=== PATIENT | male | born 1985 | race Caucasian/White ===

== ENCOUNTER 2020-08-29 22:03 | Emergency (ER) | payer BC ==
[2020-08-29 22:08] VITALS: BP 146/88; PULSE 80; RESP 18; TEMP 97.9
--- NOTE | 2020-08-29 22:19 | ED ---
Upper Extremity HPI - General Chief Complaint: Extremity Injury, Upper Stated Complaint: poss broken hand Time Seen by Provider: 08/29/20 22:14 Source: patient Mode of arrival: ambulatory Limitations: no limitations - History of Present Illness Initial Comments: 35 year-old male patient presents to the emergency department for evaluation of hand pain. Patient states about 30 minutes ago he dropped a fridge on his hand. States he believes his right "fourth metacarpal" is broken. States he did take 600mg ibuprofen prior to arrival. Denies numbness or tingling to the hand. Denies difficulty with range of motion. Denies any other injuries or concerns. Patient denies any headache, neck pain, back pain, chest pain, shortness of breath, dizziness, weakness, abdominal pain, nausea, vomiting, or difficulties with bowel movements or urination. - Related Data Allergies Allergy/AdvReac Type Severity Reaction Status Date / Time levofloxacin [From [employer]] Allergy Dyspnea Verified 08/29/20 22:07 prochlorperazine Allergy Rash/Hives Verified 08/29/20 22:07 [From Compazine] Review of Systems ROS Statement: Those systems with pertinent positive or pertinent negative responses have been documented in the HPI. ROS Other: All systems not noted in ROS Statement are negative. Past Medical History Past Medical History: No Reported History History of Any Multi-Drug Resistant Organisms: None Reported Past Surgical History: No Surgical Hx Reported Smoking Status: Never smoker Past Alcohol Use History: Occasional Past Drug Use History: None Reported General Exam Limitations: no limitations General appearance: alert, in no apparent distress, other (Physical well- developed, well-nourished adult male patient in no acute distress. Vital signs upon presentation are temperature 97.9F oral, pulse 80, respirations 18, blood pressure 146/88, pulse ox 98% on room air.) Respiratory exam: Present: normal lung sounds bilaterally. Absent: respiratory distress, wheezes, rales, rhonchi, stridor Cardiovascular Exam: Present: regular rate, normal rhythm, normal heart sounds. Absent: systolic murmur, diastolic murmur, rubs, gallop, clicks Extremities exam: Present: full ROM, tenderness (Right dorsal hand), normal capillary refill, other (There is soft tissue swelling and ecchymosis noted over the right dorsal hand specifically the fifth metacarpal at the MCP joint. Skin is otherwise pink, warm, dry. Cap refills less than 3 seconds. Radial pulses 2+.). Absent: normal inspection, pedal edema, joint swelling, calf tenderness Neurological exam: Present: alert, oriented X3, CN II-XII intact Psychiatric exam: Present: normal affect, normal mood Skin exam: Present: warm, dry, intact, normal color. Absent: rash Course Vital Signs 08/29/20 22:05 Temperature 97.9 F Pulse Rate 80 Respiratory 18 Rate Blood Pressure 146/88 O2 Sat by Pulse 98 Oximetry Medical Decision Making - Medical Decision Making 35-year-old male patient presents to the emergency department today for evaluation of right hand pain and swelling after coughing a for [place]. Physical examination did reveal soft tissue swelling and ecchymosis over the right dorsal hand specifically the fourth and fifth metacarpals. X-rays were obtained and did reveal boxer fracture minimally displaced to the right fifth metacarpal. Patient was placed in a ulnar gutter splint. He'll be discharged to follow-up with orthopedics in 1-2 days. He declines pain medication. He is educated regarding rest, ice, elevation. Return parameters were discussed in detail. He verbalizes understanding and agrees with this plan. Case discussed with my attending Dr. Granados. - Radiology Data Radiology results: report reviewed, image reviewed 3 views of the right hand are obtained. Report reviewed in its entirety. Impression by Dr. Alvarez shows acute boxer fracture of the distal fifth metacarpal without significant displacement. Disposition Clinical Impression: Displaced fracture of neck of right fifth metacarpal bone Disposition: HOME SELF-CARE Condition: Good Instructions (If sedation given, give patient instructions): Hand Fracture (ED), Splint Care (ED) Additional Instructions: Rest, ice, elevate the right hand. Apply ice at least 20 minutes at a time 3-4 times per day. Take, Motrin for pain control. Follow-up with helpdesk specialist for further evaluation as soon as possible, call first thing in the morning for an appointment. Return to the emergency department for any new, worsening, or concerning symptoms. Is patient prescribed a controlled substance at d/c from ED?: No Referrals: Delroy Tobin MD [Primary Care Provider] - 1-2 days Constantine Amaya MD [STAFF PHYSICIAN] - 1-2 days Time of Disposition: 22:50
--- NOTE | 2020-08-29 22:33 | XR ---
EXAMINATION TYPE: XR hand complete RT DATE OF EXAM: 08/29/2020 COMPARISON: NONE HISTORY: Pain. Refrigerator fell on hand. TECHNIQUE: 3 views FINDINGS: There is oblique fracture of the neck of the fifth metacarpal head. There is no significant displacement. Joint spaces are normal. The fingers appear intact. The carpal bones are intact. IMPRESSION: Acute boxer fracture of the distal fifth metacarpal without significant displacement.
== END 2020-08-29 23:03 | disposition home or self-care (01) ==
LOC: SUPCPDRO 22:03 → EC 22:03
DX: S62.336A Displaced fracture of neck of fifth metacarpal bone, right hand, initial encounter for closed fracture (principal); Z88.1 Allergy status to other antibiotic agents; Z88.8 Allergy status to other drugs, medicaments and biological substances; W20.8XXA Other cause of strike by thrown, projected or falling object, initial encounter
CPT/HCPCS: 29125; 99283

== ENCOUNTER → 2023-07-03 | Outpatient (CLI) | payer BC ==
[2023-07-03 23:07] LABS: Estradiol <20.0 pg/mL
[2023-07-03 23:37] LABS: Follicle Stimulating Hormone 1.7 mIU/mL; Luteinizing Hormone 3.3 mIU/mL
== END | disposition home or self-care (01) ==
LOC: LABWHC1 11:26
PROVIDERS: ATTEND Family Medicine
DX: R53.83 Other fatigue (principal); R89.1 Abnormal level of hormones in specimens from other organs, systems and tissues
CPT/HCPCS: 36415; 82670; 83001; 83002; 84146; 84402; 84403

== ENCOUNTER 2023-12-18 05:20 | Emergency (ER) | payer BC ==
[2023-12-18 05:49] VITALS: RESP 20
[2023-12-18] MEDS: BACLOFEN 10 MG TAB PO STA (06:18)
--- NOTE | 2023-12-18 06:18 | ED ---
Neck Injury/Pain HPI - General Chief Complaint: Neck Pain/Injury Stated Complaint: Chest Pain, Upper Back Pain Time Seen by Provider: 12/18/23 06:15 Source: patient, RN notes reviewed Mode of arrival: ambulatory Limitations: no limitations - History of Present Illness Initial Comments: 34-year-old male presenting to the ER with chief complaint of neck pain. Patient reports on November 23 he injured his neck while working out. He has been following up outpatient with orthopedics who believes he has a herniated disc. He is being scheduled for an MRI. He reports yesterday he was lifting a wood into his truck and believes he must have reinjured his neck. He reports left- sided neck pain with radiation down the left arm. He does report a tingling sensation in his first 2 digits. He reports moving his neck and arm exacerbate his pain. He has tried [place] 7.5, steroids and gabapentin without relief. He states the only medication that works is baclofen. He denies any chest pain, shortness of breath, fevers, chills, nausea, vomiting, dizziness, lightheadedness or other complaints. - Related Data Previous Rx's Medication Instructions Recorded Baclofen [Lioresal] 20 mg PO TID #30 tab 12/18/23 Allergies Allergy/AdvReac Type Severity Reaction Status Date / Time [facility] [[facility] Allergy Dyspnea Verified 12/18/23 05:33 prochlorperazine Allergy Rash/Hives Verified 12/18/23 05:33 [From Compazine] Review of Systems ROS Statement: Those systems with pertinent positive or pertinent negative responses have been documented in the HPI. ROS Other: All systems not noted in ROS Statement are negative. Past Medical History Past Medical History: No Reported History History of Any Multi-Drug Resistant Organisms: None Reported Past Surgical History: No Surgical Hx Reported Past Psychological History: No Psychological Hx Reported Smoking Status: Never smoker Past Alcohol Use History: Occasional Past Drug Use History: None Reported General Exam Limitations: no limitations General appearance: alert, in no apparent distress Head exam: Present: atraumatic, normocephalic, normal inspection Eye exam: Present: normal appearance, PERRL, EOMI. Absent: scleral icterus, conjunctival injection, periorbital swelling ENT exam: Present: normal exam, mucous membranes moist Neck exam: Present: tenderness (Tenderness to palpation of left trapezius. 2+ left radial pulse. Sensation intact. Equal agriculture laborer strength bilaterally. No er ythema, rashes or contusions present.), full ROM Respiratory exam: Present: normal lung sounds bilaterally. Absent: respiratory distress, wheezes, rales, rhonchi, stridor Cardiovascular Exam: Present: normal rhythm, tachycardia, normal heart sounds Extremities exam: Present: normal inspection, full ROM, normal capillary refill. Absent: tenderness, pedal edema, joint swelling, calf tenderness Neurological exam: Present: alert, oriented X3, CN II-XII intact Skin exam: Present: warm, dry, intact, normal color. Absent: rash Course Vital Signs 12/18/23 12/18/23 12/18/23 05:31 07:41 08:04 Temperature 98 F 97.9 F Pulse Rate 117 H 101 H 110 H Respiratory 20 20 20 Rate Blood Pressure 133/98 136/86 136/87 O2 Sat by Pulse 98 98 97 Oximetry Medical Decision Making - Medical Decision Making Was pt. sent in by a medical professional or institution (, PA, RECYCLING OPERATOR, urgent care, hospital, or [facility]...) When possible be specific @ -No Did you speak to anyone other than the patient for history (EMS, parent, family, police, friend...)? What history was obtained from this source @ -No Did you review nursing and triage notes (agree or disagree)? Why? @ -I reviewed and agree with nursing and triage notes Were old charts reviewed (outside hosp., previous admission, EMS record, old EKG, old radiological studies, urgent care reports/EKG's, [facility] records)? Report findings @ -No old charts were reviewed Differential Diagnosis (chest pain, altered mental status, abdominal pain women, abdominal pain men, vaginal bleeding, weakness, fever, dyspnea, syncope, headache, dizziness, GI bleed, back pain, seizure, CVA, palpatations, mental health, musculoskeletal)? @ -Differential Musculoskeletal: Muscular strain, contusion, ligament sprain, fracture, arthritis, septic arthritis, bursitis, cellulitis, muscle spasm, nerve compression, DVT, arterial occlusion, herpes zoster, electrolyte abnormality, tumor.... This is not meant to be in all inclusive list EKG interpreted by me (3pts min.). @ -None X-rays interpreted by me (1pt min.). @ -Cervical x-rays interpreted by me negative for acute process. CT interpreted by me (1pt min.). @ -None done U/S interpreted by me (1pt. min.). @ -None done What testing was considered but not performed or refused? (CT, X-rays, U/S, labs)? Why? @ -None What meds were considered but not given or refused? Why? @ -None Did you discuss the management of the patient with other professionals (professionals i.e. , PA, RECYCLING OPERATOR, lab, RT, psych nurse, social science manager, magazine supervisor, teacher, upscale security officer, nurse outreach case manager)? Give summary @ -No Was smoking cessation discussed for >3mins.? @ -No Was critical care preformed (if so, how long)? @ -No Were there social determinants of health that impacted care today? How? (Homelessness, low income, unemployed, alcoholism, drug addiction, transportation, low edu. Level, literacy, decrease access to med. care, nursing home, rehab)? @ -No Was there de-escalation of care discussed even if they declined (Discuss DNR or withdrawal of care, Hospice)? DNR status @ -No What co-morbidities impacted this encounter? (DM, HTN, Smoking, COPD, CAD, Cancer, CVA, ARF, Chemo, Hep., AIDS, mental health diagnosis, sleep apnea, morbid obesity)? @ -None Was patient admitted / discharged? Hospital course, mention meds given and route, prescriptions, significant lab abnormalities, going to OR and other pertinent info. @ -Discharge. 38-year-old male presented to the ER with chief complaint of neck pain. Patient injured his neck while working out on 11-24-2023. He has been following up with orthopedics and is currently being scheduled for an MRI. History and physical exam completed. Vitals stable. Patient in no signs of acute distress and nontoxic-appearing. Tenderness to right trapezius muscle. Bilateral upper extremities neurovascular intact. No acute neurological findings on exam. Pain is exacerbated with range of motion. Positive spurling test left. X-rays obtained negative for acute process. Patient received by mouth baclofen, IM Toradol without relief of pain. Upon reevaluation, patient complaining of pain. Patient received IM Dilaudid at that time. Results discussed with patient, all questions answered. Advise close follow-up with orthopedics, referral given. Baclofen prescribed. Return parameters discussed. Patient discharged stable condition. Patient verbally expressed understanding and agreement with care plan. Case discussed with ED attending, Dr. Farmer. Undiagnosed new problem with uncertain prognosis? @ -No Drug Therapy requiring intensive monitoring for toxicity (Heparin, Nitro, Insulin, Cardizem)? @ -No Were any procedures done? @ -No Diagnosis/symptom? @ -Neck pain Acute, or Chronic, or Acute on Chronic? @ -Acute Uncomplicated (without systemic symptoms) or Complicated (systemic symptoms)? @ -Uncomplicated Side effects of treatment? @ -No Exacerbation, Progression, or Severe Exacerbation? @ -No Poses a threat to life or bodily function? How? (Chest pain, [place], [place], pneumonia, PE, COPD, DKA, ARF, appy, cholecystitis, CVA, Diverticulitis, Homicidal, Suicidal, threat to staff... and all critical care pts) @ -No - Radiology Data Radiology results: report reviewed, image reviewed Disposition Clinical Impression: Neck pain Disposition: HOME SELF-CARE Condition: Stable Instructions (If sedation given, give patient instructions): Cervical Strain (ED) Additional Instructions: Follow-up with orthopedics. Return to ER if new or worsening concerns. Prescriptions: Baclofen [Lioresal] 20 mg PO TID #30 tab Is patient prescribed a controlled substance at d/c from ED?: No Referrals: Delroy Tobin MD [Primary Care Provider] - 1-2 days Celso Cheung DO [Doctor of Osteopathic Medicine] - 1-2 days Time of Disposition: 07:53
[2023-12-18] MEDS: KETOROLAC 15 MG/ML 1 ML VIAL IM STA (06:49)
--- NOTE | 2023-12-18 07:35 | XR ---
EXAMINATION TYPE: XR cervical spine comp DATE OF EXAM: 12/18/2023 COMPARISON: None HISTORY: Neck pain TECHNIQUE: 5 views cervical spine FINDINGS: Prevertebral space is normal. Posterior spinal lamellar line is intact. Odontoid has some m ild limitation with overlying occiput. Vertebral body heights are preserved. Disc heights are preserved. Foramen are patent. IMPRESSION: 1. Unremarkable cervical spine
[2023-12-18] MEDS: HYDROmorphone 0.5 MG/0.5 ML SYRINGE IM STA (07:56)
[2023-12-18 08:24] VITALS: BP 136/87; PULSE 110; TEMP 97.9
== END 2023-12-18 09:42 | disposition home or self-care (01) ==
LOC: EC 05:20
DX: M54.2 Cervicalgia (principal); Z88.1 Allergy status to other antibiotic agents; Z88.8 Allergy status to other drugs, medicaments and biological substances
CPT/HCPCS: 72050; 99283; 96372 ×2; J1885; J1170